=== PATIENT | male | born 1945 ===

== ENCOUNTER → 2019-07-28 06:00 | Outpatient (REF) | payer MEDICARE, SELFPAY | LOC: ANHLAB 06:00 | PROVIDERS: Visit Provider Nurse Practitioner | DX: C44.319 Basal cell carcinoma of skin of other parts of face (principal); C44.212 Basal cell carcinoma of skin of right ear and external auricular canal | CPT/HCPCS: 88305; 88331 ==

== ENCOUNTER → 2021-09-19 10:15 | Outpatient (REF) | payer MEDICARE, SELFPAY | LOC: ANHLAB 10:15 | PROVIDERS: Visit Provider Nurse Practitioner | DX: C44.311 Basal cell carcinoma of skin of nose (principal) | CPT/HCPCS: 88305; 88331 ==

== ENCOUNTER → 2021-12-26 11:50 | Outpatient (REF) | payer MEDICARE, SELFPAY | LOC: ANHLAB 11:50 | PROVIDERS: Visit Provider Nurse Practitioner | DX: C44.311 Basal cell carcinoma of skin of nose (principal) | CPT/HCPCS: 88305; 88331 ==

== ENCOUNTER 2023-02-01 14:05 | Outpatient (NON) | payer MEDICARE, SELFPAY | END 2023-02-01 14:06 | disposition home or self-care (01) | LOC: ANHLAB 02-02 14:08 | PROVIDERS: Visit Provider Surgery Plastic and Reconstructive Surgery | DX: L72.3 Sebaceous cyst (principal); L90.5 Scar conditions and fibrosis of skin | CPT/HCPCS: 88305 ==